=== PATIENT | male | born 1985 | race Caucasian/White ===

== ENCOUNTER 2017-03-23 17:22 | Emergency (ER) | payer OTHER ==
[2017-03-23] MEDS ORDERED: NS 0.9% 1000 ML* 1,000 ML IV ONE (17:38)
--- NOTE | 2017-03-23 18:49 | RAD ---
INDICATION: RIGHT upper quadrant pain. COMPARISON: No relevant prior exams available on the [facility] [place] [place]. TECHNIQUE: Dual energy PA and routine lateral views of the chest were obtained. REPORT: The posterior costophrenic angles are not fully included in the [id number] on the lateral view limiting assessment. Normal variant accessory azygos fissure in the medial RIGHT upper lung zone. Clear lungs and visualized pleural spaces. Negative for pneumothorax. The heart, pulmonary vasculature, and mediastinal contours are unremarkable. Unremarkable osseous structures and soft tissue contours. IMPRESSION: No evidence for acute intrathoracic disease.
--- NOTE | 2017-03-23 18:51 | RAD ---
Indication: Intermittent LEFT upper quadrant pain. Comparison: No relevant prior exams available on the [facility] [place] [place]. Technique: Supine and upright views of the abdomen. Report: No radiographic evidence for free air. Unremarkable bowel gas pattern. Moderate stool in the colon without significant rectal distension. Negative for suspicious calcifications. Unremarkable soft tissue contours. Mild LEFT convex curve of the lumbar spine with reversal at the lumbar sacral junction. IMPRESSION: No acute abdominal pelvic pathologic process evident.
[2017-03-23 18:59] LABS: Urine Bilirubin Negative (Negative); Urine Glucose Negative (Negative); Urine Nitrite Negative (Negative)
[2017-03-23 19:12] LABS: ALT 11 U/L (7-52); AST 18 U/L (13-39); Albumin 5.1 g/dL (3.2-5.2); Alkaline Phosphatase 37 U/L (34-104); Amylase 47 U/L (29-103); Anion Gap 9 mmol/L (2-11); Blood Urea Nitrogen 12 mg/dL (6-24); C Reactive Protein < 1.00 mg/L (< 5.00); CO2 Carbon Dioxide 25 mmol/L (22-32); Calcium 9.5 mg/dL (8.6-10.3); Chloride 100 mmol/L (101-111); Creatine Kinase 149 U/L (10-223); EGFR African American 125.1 (>60); EGFR Non-African American 97.3 (>60); Glucose 105 mg/dL (70-100); Lipase < 10 U/L (11.0-82.0); Potassium 3.5 mmol/L (3.5-5.0); Sodium 134 mmol/L (133-145); Total Protein 8.1 g/dL (6.4-8.9)
[2017-03-23 19:13] LABS: Comments Flag Yes; Hematocrit 42 % (42-52); Mean Corpuscular HGB Conc 34 g/dl (31-36); Mean Corpuscular Hemoglobin 32 pg (27-31); Mean Corpuscular Volume 94 fL (80-94); Mean Platelet Volume 8 um3 (7.4-10.4); Red Blood Count 4.44 10^6/ul (4.0-5.4); Red Cell Distribution Width 13 % (10.5-15); White Blood Count 9.1 10^3/ul (3.5-10.8)
--- NOTE | 2017-03-23 20:53 | ED ---
Evelio Avila Rebecca, scribed for Grant Bloom on 03/23/17 at 1941 . Progress - Progress Note Progress Note: Pt was signed out from Dr. Mason, pending disposition, awaiting further workup. - Results/Orders Results/Orders: Abdomen XR, as read by radiologist, reveals: No acute abdominal pelvic pathologic process evident. ED physician reviewed radiology report and agrees. CXR, as read by radiologist, reveals: No evidence for acute intrathoracic disease. ED physician reviewed radiology report and agrees. Re-Evaluation - Re-Evaluation First Eval Re-Evaluation Time: 19:41 Comment: Discussing radiology reports with the pt. Second Eval Re-Evaluation Time: 20:20 Change: Improved Comment: Pt is currently in no pain. Wants to do CT with his PCP. Course/Dx - Course Course Of Treatment: Pt was signed out by Dr. Mason, pending disposition, awaiting further workup. Abd XR and CXR reveal no acute findings. Troponin of 0.00. UA negative for UTI. Upon reevaluatoin, pt's sx have resolved and he is in no pain, expressing that he would like a CT with his PCP. Pt's condition is stable and he will be D/C to home with Dx of atypical chets pain and flank pain with a follow up with his PCP. He understands and agrees. Allergies noted. Elevated BP noted. - Diagnoses Provider Diagnoses: Atypical chest pain, Flank pain The documentation as recorded by the Evelio cassidy Rebecca accurately reflects the service I personally performed and the decisions made by , Grant Bloom.
[2017-03-23 21:04] VITALS: BP 123/65
--- NOTE | 2017-03-25 08:28 | ED ---
Estela Avila SooYoung, scribed for Josh Mason MD on 03/23/17 at 1814 . Abdominal Pain/Male - HPI Summary HPI Summary: A 31 y/o M referred from [facility] presents with intermittent episodes of acute LUQ pain lasting a few seconds that began at 11:30 this morning. Pt describes having pain with gas and has had general discomfort for 2 days. Alleviating factors: passing gas, walking, standing. Pt states he felt off." Provider at [facility] expressed concerns for Marfan's and possible heart-related conditions. As a child, pt was tested for Marfans with U/S and EKG. Pt denies taking any daily medications, smoking, weekly ETOH and drugs. Pert PMHx: post-infectious IBS several years ago. - History of Current Complaint Chief Complaint: EDAbdPain Stated Complaint: LT SIDE SHARP ABD PAIN Time Seen by Provider: 03/23/17 17:38 Hx Obtained From: Patient Onset/Duration: Sudden Onset, Lasting Days - Discomfort has lasted past 3 days. , Resolved Timing: Intermittent Severity Currently: None Pain Intensity: 1 Pain Scale Used: 0-10 Numeric Location: Discrete At: LUQ Radiates: No Character: Sharp Alleviating Factor(s): Other: - Standing erect and ambulating and passing gas - Allergies/Home Medications Allergies/Adverse Reactions: Allergies Allergy/AdvReac Type Severity Reaction Status Date / Time Sulfa Antibiotics Allergy Unknown Unknown Verified 03/23/17 17:33 Reaction Details PMH/Surg Hx/FS Hx/Imm Hx Previously Healthy: Yes GI History: Reports: Other GI Disorders - post-infectious IBS Opthamlomology History: Denies: Hx Legally Blind EENT History: Denies: Hx Deafness Infectious Disease History: No Infectious Disease History: Denies: Traveled Outside the [place] in Last 30 Days - Family History Known Family History: Positive: Diabetes, Other - Parents diagnosed with mitral valve prolapse - Social History Occupation: Employed Full-time Lives: Alone Alcohol Use: Weekly - 2x Hx Substance Use: No Hx Tobacco Use: No Review of Systems Negative: Fever Positive: flank pain All Other Systems Reviewed And Are Negative: Yes Physical Exam - Summary Physical Exam Summary: VITAL SIGNS: Reviewed. GENERAL: Patient is a well-developed and nourished male who is lying comfortable in the stretcher. Patient is not in any acute respiratory distress. HEAD AND FACE: Normocephalic and atraumatic. EYES: PERRLA, EOMI x 2, No injected conjunctiva. EARS: Hearing grossly intact. Ear canals and tympanic membranes are WNL. MOUTH: Oropharynx within normal limits. NECK: Supple, trachea is midline, no adenopathy, no JVD. CHEST: Symmetric, no tenderness at palpation LUNGS: Clear to auscultation bilaterally. No wheezing or crackles. CVS: RRR, S1 and S2 present, no murmurs or gallops appreciated. ABDOMEN: Soft, non-tender. No signs of distention. Positive bowel sounds. No rebound, no guarding, and no masses palpated. No abdominal bruit or pulsations. EXTREMITIES: FROM in all major joints, no edema, no cyanosis or clubbing. NEURO: Alert and oriented x 3. No acute neurological deficits. Speech is normal. SKIN: Dry and warm Triage Information Reviewed: Yes Vital Signs On Initial Exam: Initial Vitals Temp Pulse Resp BP Pulse Ox 98.0 F 84 16 154/90 100 03/23/17 17:26 03/23/17 17:26 03/23/17 17:26 03/23/17 17:26 03/23/17 17:26 Vital Signs Reviewed: Yes Diagnostics - Vital Signs Vital Signs Temp Pulse Resp BP Pulse Ox 03/23/17 17:26 98.0 F 84 16 154/90 100 - Laboratory Lab Results: Lab Results 03/23/17 03/23/17 03/23/17 Range/Units 18:45 18:45 18:45 WBC 9.1 (3.5-10.8) 10^3/ul RBC 4.44 (4.0-5.4) 10^6/ul Hgb 14.0 (14.0-18.0) g/dl Hct 42 (42-52) % MCV 94 (80-94) fL MCH 32 H (27-31) pg MCHC 34 (31-36) g/dl RDW 13 (10.5-15) % Plt Count 218 (150-450) 10^3/ul MPV 8 (7.4-10.4) um3 Neut % (Auto) 85.3 H (38-83) % Lymph % (Auto) 10.9 L (25-47) % [place] % (Auto) 3.3 (1-9) % Eos % (Auto) 0.1 (0-6) % Baso % (Auto) 0.4 (0-2) % Absolute Neuts (auto) 7.7 (1.5-7.7) 10^3/ul Absolute Lymphs (auto) 1.0 (1.0-4.8) 10^3/ul Absolute Monos (auto) 0.3 (0-0.8) 10^3/ul Absolute Eos (auto) 0 (0-0.6) 10^3/ul Absolute Basos (auto) 0 (0-0.2) 10^3/ul Absolute Nucleated RBC 0 10^3/ul Nucleated RBC % 0 Sodium 134 (133-145) mmol/L Potassium 3.5 (3.5-5.0) mmol/L Chloride 100 L (101-111) mmol/L Carbon Dioxide 25 (22-32) mmol/L Anion Gap 9 (2-11) mmol/L BUN 12 (6-24) mg/dL Creatinine 0.92 (0.67-1.17) mg/dL Est GFR ( Amer) 125.1 (>60) Est GFR (Non-Af Amer) 97.3 (>60) BUN/Creatinine Ratio 13.0 (8-20) Glucose 105 H (70-100) mg/dL Calcium 9.5 (8.6-10.3) mg/dL Total Bilirubin 1.80 H (0.2-1.0) mg/dL AST 18 (13-39) U/L ALT 11 (7-52) U/L Alkaline Phosphatase 37 (34-104) U/L Total Creatine Kinase 149 (10-223) U/L Troponin I 0.00 (<0.04) ng/mL C-Reactive Protein < 1.00 (< 5.00) mg/L Total Protein 8.1 (6.4-8.9) g/dL Albumin 5.1 (3.2-5.2) g/dL Globulin 3.0 (2-4) g/dL Albumin/Globulin Ratio 1.7 (1-3) Amylase 47 (29-103) U/L Lipase < 10 L (11.0-82.0) U/L Urine Color Straw Urine Appearance Clear Urine pH 6.0 (5-9) Ur Specific [place] 1.004 L (1.010-1.030) Urine Protein Negative (Negative) Urine Ketones Trace H (Negative) Urine Blood Negative (Negative) Urine Nitrate Negative (Negative) Urine Bilirubin Negative (Negative) Urine Urobilinogen Negative (Negative) Ur Leukocyte Esterase Negative (Negative) Urine Glucose Negative (Negative) Result Diagrams: 03/23/17 18:45 03/23/17 18:45 Lab Statement: Any lab studies that have been ordered have been reviewed, and results considered in the medical decision making process. Abdominal Pain Fem Course/Dx - Course Course Of Treatment: A 31 y/o M referred from [facility] presents with intermittent episodes of acute LUQ pain lasting a few seconds that began at 11:30 this morning. Pt describes having pain with gas and has had general discomfort for 2 days. Alleviating factors: passing gas, walking, standing. Pt states he felt off." Provider at [facility] expressed concerns for Marfan's and possible heart- related conditions. As a child, pt was tested for Marfans with U/S and EKG. Pt denies taking any daily medications, smoking, weekly ETOH and drugs. Pert PMHx: post-infectious IBS several years ago. Labs and X rays pending. Patient sign out to Dr. Bloom at change of shift at 7PM. He will f/u blood work and x rays and furthe disposition of the patient - Diagnoses Provider Diagnoses: Atypical chest pain, Flank pain Discharge - Discharge Plan Condition: Stable Disposition: OTHER Discharge Disposition Comment: SO to Dr. Bloom pending lab and imaging results. Patient Education Materials: Chest Pain (ED), Flank Pain (ED) Referrals: [facility] [place] [facility] [place] [facility] [Outside] - 3 Days No Primary Care Phys,NOPCP [Primary Care Provider] - The documentation as recorded by the Estela cassidy SooYoung accurately reflects the service I personally performed and the decisions made by me, Josh Mason MD.
== END 2017-03-23 21:03 ==
LOC: ED 17:22
DX: R07.89 Other chest pain (principal); R10.84 Generalized abdominal pain
CPT/HCPCS: 36415; 71020; 74020; 80053; 81003; 82150; 82550; 83690; 84484; 85025; 86140; 96360; 99282